=== PATIENT | male | born 1930 | race Caucasian/White ===

== ENCOUNTER → 2017-02-06 | Outpatient (CLI) | payer MEDICARE, OTHER ==
[2017-02-06 18:43] LABS: ALBUMIN/GLOBULIN RATIO 1.5 (1.0-2.2); BILIRUBIN,TOTAL 0.5 mg/dL (0.2-1.0); BUN - BLOOD UREA NITROGEN 15 mg/dL (6-20); CALCIUM 8.9 mg/dL (8.5-10.3); CARBON DIOXIDE - CO2 27 mmol/L (21-32); CHLORIDE 100 mmol/L (101-111); CHOL/HDL RATIO 2.5 (<5.0); CHOLESTEROL 127 mg/dL; CREATININE 0.7 mg/dL (0.6-1.2); GFR - MDRD 107 (>89); GLUCOSE 144 mg/dL (70-100); HDL CHOLESTEROL 51 mg/dL; LDL/HDL RATIO 1.3 (<3.6); POTASSIUM 4.8 mmol/L (3.5-5.0); SODIUM 134 mmol/L (135-145); TOTAL PROTEIN 6.9 g/dL (6.7-8.2); TRIGLYCERIDES 57 mg/dL; VLDL CHOLESTEROL 11 mg/dL
[2017-02-06 19:09] LABS: BASOPHILS # (AUTO) 0.1 10^3/uL (0.0-0.1); BASOPHILS % (AUTO) 1.1 %; EOSINOPHILS # (AUTO) 0.3 10^3/uL (0.0-0.7); EOSINOPHILS % (AUTO) 3.2 %; HCT - HEMATOCRIT 39.3 % (42.0-52.0); HGB - HEMOGLOBIN 12.8 g/dL (14.0-18.0); LYMPHOCYTES # (AUTO) 0.9 10^3/uL (1.5-3.5); LYMPHOCYTES % (AUTO) 11.3 %; MEAN CORPUSCULAR HEMOGLOBIN 29.4 pg (27.0-31.0); MEAN CORPUSCULAR HGB CONC 32.7 g/dL (32.0-36.0); MONOCYTES % (AUTO) 12.4 %; NEUTROPHILS # (AUTO) 5.9 10^3/uL (1.5-6.6); RED BLOOD COUNT 4.36 10^6/uL (4.70-6.10); RED CELL DISTRIBUTION WIDTH 14.3 % (12.0-15.0); UNCORRECTED WHITE BLOOD COUNT 8.2 x10^3/uL; WHITE BLOOD COUNT 8.2 x10^3/uL (4.8-10.8)
[2017-02-06 19:59] LABS: HEMOGLOBIN A1C 0.64 g/dL
== END ==
LOC: LAB.S 08:00
PROVIDERS: ATTEND Nurse Practitioner Family
DX: E11.9 Type 2 diabetes mellitus without complications (principal); I50.9 Heart failure, unspecified; E78.5 Hyperlipidemia, unspecified
CPT/HCPCS: 36415; 80053; 80061; 83036; 85025

== ENCOUNTER 2017-02-20 08:00 | Outpatient (CLI) | payer MEDICARE, OTHER | END 2017-02-20 08:01 | disposition home or self-care (01) | LOC: LAB.R 08:00 | PROVIDERS: ATTEND Nurse Practitioner Family | DX: D64.9 Anemia, unspecified (principal) | CPT/HCPCS: 82270; 83630 ==

== ENCOUNTER 2017-06-20 11:14 | Outpatient (CLI) | payer MEDICARE, OTHER | END 2017-06-20 11:15 | disposition critical access hospital (66) | LOC: EMS 11:14 | PROVIDERS: ATTEND Surgery | DX: M25.551 Pain in right hip (principal); W18.39XA Other fall on same level, initial encounter; Y93.89 Activity, other specified; Y92.009 Unspecified place in unspecified non-institutional (private) residence as the place of occurrence of the external cause | CPT/HCPCS: A0425; A0429 ==

== ENCOUNTER 2017-06-20 11:49 | Inpatient (IN) | payer MEDICARE, OTHER ==
[2017-06-20] MEDS ORDERED: SODIUM CHLORIDE 0.9% 1,000 ML IV ONE ×5 (12:25→19:52)
[2017-06-20] MEDS ORDERED: MORPHINE 10 MG/ML VIAL IVP STA ×2 (12:25→13:36)
[2017-06-20 12:45] LABS: BASOPHILS # (AUTO) 0.1 10^3/uL (0.0-0.1); BASOPHILS % (AUTO) 0.8 %; EOSINOPHILS # (AUTO) 0.2 10^3/uL (0.0-0.7); EOSINOPHILS % (AUTO) 1.8 %; HGB - HEMOGLOBIN 12.3 g/dL (14.0-18.0); LYMPHOCYTES # (AUTO) 0.9 10^3/uL (1.5-3.5); LYMPHOCYTES % (AUTO) 8.2 %; MEAN CORPUSCULAR HEMOGLOBIN 30.1 pg (27.0-31.0); MEAN CORPUSCULAR HGB CONC 34.6 g/dL (32.0-36.0); MEAN PLATELET VOLUME 7.2 fL (7.4-11.4); MONOCYTES # (AUTO) 1.3 10^3/uL (0.0-1.0); MONOCYTES % (AUTO) 11.8 %; NEUTROPHILS # (AUTO) 8.3 10^3/uL (1.5-6.6); NEUTROPHILS % (AUTO) 77.4 %; PLT - PLATELET COUNT 240 10^3/uL (130-450); RED BLOOD COUNT 4.09 10^6/uL (4.70-6.10); WHITE BLOOD COUNT 10.7 x10^3/uL (4.8-10.8)
--- NOTE | 2017-06-20 12:47 | ED Physician Documentation ---
History of Present Illness - Stated complaint Stated Complaint: GLF - Chief complaint Chief Complaint: Ext Problem - History obtained from History obtained from: Patient, Family - History of Present Illness Timing: Today, How many hours ago (1) Pain level max: 8 Pain level now: 4 Improved by: rest Worsened by: movement - Additonal information Additional information: Patient is an 87-year-old male who tripped and fell today at home, landing on his right side. Complaining of right hip pain. He denies being on any blood thinners. Better with rest, worse with movement. Did not strike his head. No loss of consciousness. No other complaints of pain at this time. Review of Systems Ten Systems: 10 systems reviewed and negative Constitutional: denies: Fever, Chills Ears: denies: Ear pain Nose: denies: Rhinorrhea / runny nose, Congestion Throat: denies: Sore throat Cardiac: denies: Chest pain / pressure Respiratory: denies: Cough GI: denies: Abdominal Pain, Nausea, Vomiting, Diarrhea : denies: Dysuria, Frequency, Hesitancy Skin: denies: Rash Musculoskeletal: denies: Neck pain, Back pain Neurologic: denies: Focal weakness, Numbness, Headache PD PAST MEDICAL HISTORY - Past Medical History Past Medical History: Yes Cardiovascular: Hypertension, High cholesterol - Present Medications Home Medications: Ambulatory Orders Medication Instructions Recorded Confirmed Aspirin 81 mg PO DAILY 06/20/17 Atorvastatin Calcium 40 mg PO QPM 06/20/17 Carvedilol [Coreg] 12.5 mg PO BID 06/20/17 Lisinopril 5 mg PO DAILY 06/20/17 Spironolactone [Aldactone] 25 mg PO DAILY 06/20/17 - Living Situation Living Arrangement: reports: At home - Social History Does the pt have substance abuse?: No - Family History Family history: reports: Non contributory PD ED PE NORMAL - Vitals Vital signs reviewed: Yes - General General: Alert and oriented X 3, No acute distress, Well developed/nourished - HEENT HEENT: Atraumatic, PERRL, EOMI, Ears normal, Moist mucous membranes - Neck Neck: Supple, no meningeal sign, No bony TTP - Cardiac Cardiac: RRR, Strong equal pulses - Respiratory Respiratory: No respiratory distress, Clear bilaterally - Abdomen Abdomen: Soft, Non tender, Non distended - Derm Derm: Warm and dry - Extremities Extremities: Other (TTP R hip, limited ROM 2/2 pain. NVI. swelling R hip.) - Neuro Neuro: Alert and oriented X 3 - Psych Psych: Normal mood, Normal affect Results - Vitals Vitals: Vital Signs - 24 hr 06/20/17 06/20/17 06/20/17 11:53 12:15 12:30 Temperature 36.0 C L Heart Rate 59 L 86 82 Respiratory 20 16 16 Rate Blood Pressure 163/80 H 158/82 H 162/85 H O2 Saturation 99 98 98 06/20/17 06/20/17 14:01 15:01 Temperature Heart Rate 66 78 Respiratory 14 18 Rate Blood Pressure 153/78 H 153/78 H O2 Saturation 96 98 Oxygen O2 Source Room air - EKG (time done) 1209 Rate: Rate (enter#) (59) Rhythm: NSR [employer]: Normal Intervals: Normal [place] QRS: Normal Ischemia: Normal ST segments Computer interpretation: Agree with computer - Labs Labs: Laboratory Tests 06/20/17 06/20/17 12:35 12:35 WBC 10.7 RBC 4.09 L Hgb 12.3 L Hct 35.6 L MCV 87.0 MCH 30.1 MCHC 34.6 RDW 14.0 Plt Count 240 MPV 7.2 L Neut # 8.3 H Lymph # 0.9 L [place] # 1.3 H Eos # 0.2 Baso # 0.1 Absolute Nucleated RBC 0.00 Nucleated RBC % 0.0 Sodium 132 L Potassium 4.4 Chloride 101 Carbon Dioxide 25 Anion Gap 6.0 BUN 16 Creatinine 0.8 Estimated GFR (MDRD) 91 Glucose 155 H Calcium 8.7 Total Bilirubin 0.7 AST 24 ALT 15 Alkaline Phosphatase 46 Total Protein 6.4 L Albumin 3.8 Globulin 2.6 Albumin/Globulin Ratio 1.5 Lipase 16 L - Rads (name of study) cxr Radiology: Prelim report reviewed, EMP read contemporaneously, See rad report ( no acute disease) R hip xray Radiology: Prelim report reviewed, EMP read contemporaneously, See rad report ( Displaced and angulated spiral fracture of proximal right femoral diaphysis. Displaced fracture right lesser trochanter. ) PD MEDICAL DECISION MAKING - ED course Complexity details: reviewed old records, reviewed results, re-evaluated patient , considered differential, d/w patient, d/w customer sales consultant ED course: Patient is an 87-year-old male who presents to the emergency department after a fall. Found to have a right spiral femur fracture. As well as a greater trochanter fracture. Discussed the case with orthopedics and will take to the operating room. Last ate at 6 AM today. Also discussed with Dr. Cabrera, hospitalist who will do a preop evaluation. Pain well controlled. Dr. Bennett came and evaluated the patient, orthopedics and will take him to the OR. This document was made in part using voice recognition software. While efforts are made to proofread this document, sound alike and grammatical errors may occur. Departure - Departure Disposition: ED Transfer to [facility] Clinical Impression: Hip fracture Qualifiers: Encounter type: initial encounter Fracture type: closed Laterality: right Qualified Code(s): S72.001A - Fracture of unspecified part of neck of right femur, initial encounter for closed fracture Condition: Good Discharge Date/Time: 06/20/17 16:10
[2017-06-20 12:54] LABS: ALBUMIN 3.8 g/dL (3.2-5.5); ALBUMIN/GLOBULIN RATIO 1.5 (1.0-2.2); BILIRUBIN,TOTAL 0.7 mg/dL (0.2-1.0); CALCIUM 8.7 mg/dL (8.5-10.3); CREATININE 0.8 mg/dL (0.6-1.2); TOTAL PROTEIN 6.4 g/dL (6.7-8.2)
[2017-06-20] MEDS ORDERED: HYDROmorphone 1 MG/ML SYRINGE IVP PRN (13:58)
[2017-06-20] MEDS ORDERED: SODIUM CHLORIDE FLUSH 0.9% 10 ML SYRINGE IVP PRN (13:58)
[2017-06-20] MEDS ORDERED: ONDANSETRON 4 MG/2 ML VIAL IVP PRN ×2 (13:58→19:30)
[2017-06-20] MEDS ORDERED: ONDANSETRON ODT 4 MG TABLET TL PRN (13:58)
[2017-06-20] MEDS ORDERED: METOPROLOL 5 MG/5 ML VIAL IVP PRN (14:02)
--- NOTE | 2017-06-20 14:26 | XRAY Report ---
EXAM: CHEST RADIOGRAPHY EXAM DATE: 06/20/2017 01:40 PM. CLINICAL HISTORY: Hip fracture. Presurgical clearance. COMPARISON: 10/20/2006. TECHNIQUE: 1 view. FINDINGS: Lungs/Pleura: No focal opacities or vascular congestion. No pleural effusion or pneumothorax. Mediastinum: Normal heart size. Stable mildly tortuous aorta. Other: No acute fracture evident. IMPRESSION: 1. No acute cardiopulmonary findings. 2. Senescent aorta. [facility] Referring Provider Line: [phone] SITE ID: [id number]
--- NOTE | 2017-06-20 14:26 | XRAY Preliminary Report ---
Exam: XR CHEST 1 VIEW X-RAY IMPRESSION: 1. No acute cardiopulmonary findings. 2. Senescent aorta. [facility] SITE ID: [id number]
--- NOTE | 2017-06-20 14:30 | XRAY Report ---
EXAM: RIGHT HIP RADIOGRAPHY EXAM DATE: 06/20/2017 01:09 PM. CLINICAL HISTORY: Right hip pain after fall. COMPARISON: None. TECHNIQUE: 5 views including AP pelvis. FINDINGS: Bones: Spiral fracture mainly of the proximal femoral diaphysis with one shaft width posterior displa cement and lateral posterior angulation of the fracture apex. Fracture of right lesser trochanter whi ch is displaced proximally. Intact bony pelvis. Joints: No subluxation. Mild age-related degenerative changes of bilateral hips. Other: Degenerative changes lower lumbar spine. IMPRESSION: 1. Displaced and angulated spiral fracture of proximal right femoral diaphysis. 2. Displaced fracture right lesser trochanter. [facility] Referring Provider Line: [phone] SITE ID: [id number]
--- NOTE | 2017-06-20 14:30 | XRAY Preliminary Report ---
Exam: XR HIP W/PELVIS 2-3V RT IMPRESSION: 1. Displaced and angulated spiral fracture of proximal right femoral diaphysis. 2. Displaced fracture right lesser trochanter. [facility] SITE ID: [id number]
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
--- NOTE | 2017-06-20 15:38 | PROVIDER PROGRESS NOTE ---
Subjective - Prog Note Date Prog Note Date: 06/20/17 Prog Note Time: 15:36 - Subjective Subjective: GLF at home today, sustaining an injury to right leg/thigh. No LOC or other injury. Unable to stand on right side. Taken to ED for evaluation. No prior fracture Objective - Vital Signs/Intake & Output Vital Signs: Vital Signs x48h Temp Pulse Resp BP Pulse Ox 06/20/17 14:01 66 14 153/78 H 96 06/20/17 11:53 36.0 C L 59 L 20 163/80 H 99 - Lab Results Fish Bones: 06/20/17 12:35 06/20/17 12:35 Other Labs: Lab Results x24hrs 06/20/17 06/20/17 Range/Units 12:35 12:35 WBC 10.7 (4.8-10.8) x10^3/uL RBC 4.09 L (4.70-6.10) 10^6/uL Hgb 12.3 L (14.0-18.0) g/dL Hct 35.6 L (42.0-52.0) % MCV 87.0 (80.0-94.0) fL MCH 30.1 (27.0-31.0) pg MCHC 34.6 (32.0-36.0) g/dL RDW 14.0 (12.0-15.0) % Plt Count 240 (130-450) 10^3/uL MPV 7.2 L (7.4-11.4) fL Neut # 8.3 H (1.5-6.6) 10^3/uL Lymph # 0.9 L (1.5-3.5) 10^3/uL [place] # 1.3 H (0.0-1.0) 10^3/uL Eos # 0.2 (0.0-0.7) 10^3/uL Baso # 0.1 (0.0-0.1) 10^3/uL Absolute Nucleated RBC 0.00 x10^3/uL Nucleated RBC % 0.0 /100WBC Sodium 132 L (135-145) mmol/L Potassium 4.4 (3.5-5.0) mmol/L Chloride 101 (101-111) mmol/L Carbon Dioxide 25 (21-32) mmol/L Anion Gap 6.0 (6-13) BUN 16 (6-20) mg/dL Creatinine 0.8 (0.6-1.2) mg/dL Estimated GFR (MDRD) 91 (>89) Glucose 155 H (70-100) mg/dL Calcium 8.7 (8.5-10.3) mg/dL Total Bilirubin 0.7 (0.2-1.0) mg/dL AST 24 (10-42) IU/L ALT 15 (10-60) IU/L Alkaline Phosphatase 46 (42-121) IU/L Total Protein 6.4 L (6.7-8.2) g/dL Albumin 3.8 (3.2-5.5) g/dL Globulin 2.6 (2.1-4.2) g/dL Albumin/Globulin Ratio 1.5 (1.0-2.2) Lipase 16 L (22-51) U/L - Diagnostic Imaging Diagnostic Imaging Comments: Angulated and flexed subtrochanteric hip/proximal femur fracture - Other Results/Comments Other Results/Comments: EXAM<: Right leg - angulated deformity proximal thigh, leg int rotated. Moves toes well. Sensation -intact. Good capfilling Assessment/Plan - Problem List (1) Hip fracture Impression: Patient has a subtrochanteric hip/proximal femur fracture - closed and angulated. N/V intact PLAN: After medical clearance, plan open reduction and long interTan nailing of right proximal femur fracture later today. Last ate at 0600. Risk/benefits explained and patient wishes to proceed with surgery. Leg marked. Consent signed. Qualifiers: Encounter type: initial encounter Fracture type: closed Laterality: right Qualified Code(s): S72.001A - Fracture of unspecified part of neck of right femur, initial encounter for closed fracture
[2017-06-20] MEDS ORDERED: BUPIVACAINE 0.5% PF 10 ML VIAL IM ONE (16:30)
[2017-06-20] MEDS ORDERED: fentaNYL 100 MCG/2 ML VIAL IVP ONE (16:30)
[2017-06-20] MEDS ORDERED: PHENYLEPHRINE 10 MG/ML VIAL IV ONE (16:30)
[2017-06-20] MEDS ORDERED: ePHEDrine 50 MG/ML AMP IVP ONE (16:30)
[2017-06-20] MEDS ORDERED: MIDAZOLAM 2 MG/2 ML VIAL IVP ONE (16:30)
--- NOTE | 2017-06-20 16:35 | HISTORY & PHYSICAL EXAMINATION ---
DATE OF SERVICE: 06/20/2017 Physician: Madhu Bennett MD CHIEF COMPLAINT: "I fell and hurt my right leg." DATE OF ADMISSION: 06/20/2017. HISTORY OF PRESENT ILLNESS: The patient is an 87-year-old male who lives alone here on [facility] who apparently fell onto his right side as he was attempting to put on his coveralls this afternoon. He noted immediate pain and deformity in his right leg. He was unable to stand or weight bear. He was taken to the emergency room here at [facility] where x-rays showed an angulated and displaced, closed subtrochanteric proximal right femur fracture. The patient had no distal weakness or numbness in the right lower extremity. No loss of consciousness noted. No other injuries are noted. No prior fractures noted. PAST MEDICAL HISTORY: CHRONIC ILLNESSES: 1. History of hypertension. 2. History of angina in the past. 3. History of congestive heart failure in the past. 4. History of type 2 diabetes - controlled. 5. History of chronic obstructive pulmonary disease. CURRENT MEDICATIONS: 1. Aldactone 25 mg p.o. daily. 2. Lisinopril 5 mg p.o. daily. 3. Lipitor 40 mg p.o. evening. 4. Aspirin 81 mg p.o. daily. 5. Coreg 12.5 mg p.o. b.i.d. SOCIAL HISTORY: The patient [place] PHYSICAL EXAMINATION: GENERAL: This is an elderly male, lying in a stretcher in moderate distress. VITAL SIGNS: BP 153/78, pulse 66, respirations 14, temperature 36. HEENT: Normocephalic, PERRLA. EOMs full. Vision and hearing grossly intact and symmetrical. Nose and throat clear. NECK: Supple, without nodes. CHEST: Clear to auscultation. CARDIOVASCULAR: Regular rate and rhythm, S1, S2, without murmurs, rubs or gallops. ABDOMEN: Soft, nontender, active bowel sounds. EXTREMITIES: Right lower extremity - the patient has obvious angulatory deformity of his proximal thigh. It is somewhat swollen. No wounds appreciated. Leg is slightly shortened and internally rotated. The patient moves his toes well. Sensation intact throughout. Good capillary filling though to the toes as well. NEUROLOGIC: The patient grossly intact and symmetrical throughout on sensory and motor exam. Mental Status - patient is alert and oriented x3. Answers questions appropriately. X-RAYS: Shows an oblique subtrochanteric hip fracture of the proximal femur. LABORATORY DATA: Hematocrit is 35.6, WBC 10,700, sodium 132, potassium 4.1, chloride 101, carbon dioxide 25, creatinine 0.8. ASSESSMENT: 1. Closed, angulated right proximal femur fracture. 2. History of hypertension. 3. History of well-controlled type 2 diabetes. 4. History of chronic obstructive pulmonary disease. 5. History of congestive heart failure. PLAN: I will have the patient evaluated by the medical service to determine whether we should proceed with surgery later today or not. The patient last ate at about 6 in the morning. Had some black coffee later in the morning. Once he has been cleared medically we will proceed to take the patient to the OR for an open reduction as needed of his angulated proximal femur fracture. We will stabilize the reduced fracture with a long interTan (06:29) nailing. The risks and benefits of surgery were explained to the patient including, but not limited to , anesthesia risks, infection, blood loss, nerve damage, malunion, nonunion, hardware failure, blood clots, etc. The patient appeared to understand these risks and benefits, but wants to proceed with surgery. All his questions were answered. Discussion on the phone with the patient's son was also done. All his questions were also answered. The patient's legs were marked. Consent signed. TD: 06/20/2017 17:34 MARLENE
[2017-06-20] MEDS ORDERED: BUPIVACAINE 0.25%-EPI 1:200000 PF 30 ML VIAL SUBQ ONE ×2 (17:13)
[2017-06-20] MEDS ORDERED: SODIUM CHLORIDE 0.9% 1,000 ML IV SCH ×2 (18:00→20:00)
--- NOTE | 2017-06-20 19:27 | OPERATIVE REPORT ---
Operative Report - General Admit Date: 06/20/17 Procedure Date: 06/20/17 Planned Procedure: Open reduction; long interTan nailing of right subtrochanteric femur fx Pre-Op Diagnosis: Angulated, close right subtrochanteric/proximal femur fracture Procedure Performed: Open reduction and long interTan nailing of right femur fracture Post Op Diagnosis: Same - Procedure Note Primary Surgeon: Evangelina Bennett Secondary Surgeon: Jethro Anesthesia Provider: Eboni Stoddard Anesthesia Technique: Spinal IV Fluids (mL): 2,000 Estimated Blood Loss (mL): 400 Complications: None
[2017-06-20] MEDS ORDERED: ACETAMINOPHEN 1,000 MG/100 ML 100 ML IV PRN (19:30)
[2017-06-20] MEDS ORDERED: ACETAMINOPHEN 325 MG TABLET PO PRN (19:30)
[2017-06-20] MEDS ORDERED: PROCHLORPERAZINE 10 MG/2 ML VIAL IVP PRN (19:30)
[2017-06-20 19:54] LABS: HGB - HEMOGLOBIN 8.3 g/dL (14.0-18.0)
[2017-06-20 20:07] LABS: ALBUMIN 2.5 g/dL (3.2-5.5); ALBUMIN/GLOBULIN RATIO 1.4 (1.0-2.2); BILIRUBIN,TOTAL 0.6 mg/dL (0.2-1.0); CALCIUM 6.9 mg/dL (8.5-10.3); CREATININE 0.7 mg/dL (0.6-1.2); TOTAL PROTEIN 4.3 g/dL (6.7-8.2)
--- NOTE | 2017-06-20 20:07 | XRAY Report ---
EXAM: FLUOROSCOPIC GUIDANCE EXAM DATE: 06/20/2017 06:59 PM. CLINICAL HISTORY: ORIF RIGHT FEMUR. COMPARISON: None. FINDINGS: No images recorded. IMPRESSION: Fluoroscopic guidance provided for right femur IM nail. Total fluoroscopy time: 1:10 min. Number of images: 0. CONSTANTINO Referring Provider Line: [phone] SITE ID: [id number]
[2017-06-20] MEDS ORDERED: SODIUM CHLORIDE 0.9% 500 ML IV SCH (20:24)
--- NOTE | 2017-06-20 20:45 | OPERATIVE REPORT ---
DATE OF SERVICE: 06/20/2017 Physician: Madhu Bennett MD PREOPERATIVE DIAGNOSIS: Closed, angulated and displaced right subtrochanteric/proximal femur fractur e. POSTOPERATIVE DIAGNOSIS: Closed, angulated and displaced right subtrochanteric/proximal femur fractu re. PROCEDURE PERFORMED: Open reduction and long Intertan nailing of right subtrochanteric/proximal femu r fracture. SURGEON: Madhu Bennett BALANCE WHEEL SCREW HOLE DRILLER: None. ANESTHESIA: Spinal. DESCRIPTION OF PROCEDURE: The patient was taken to the operating room on the evening of 06/20/2017, where he was placed under spinal anesthetic without any complications. He was then positioned supine and plac ed onto the fracture table. The left unfractured leg was then flexed and widely abducted and held with a wel l leg cota. The fractured right lower extremity was then placed in the longitudinal traction with the le g internally rotated about 15 degrees. Fluoroscopic views and AP and lateral projection, showed good visualization of the femur and the hip. However, because of the subtrochanteric position of his frac ture, his proximal fragment was flexed. Adjustments in the traction and applying anterior pressure over the fr acture apex did not improve the alignment of the fracture or the displacement of the fracture. We then prep ped and draped the lateral aspect in the hip and thigh in the usual fashion for our procedure. Making a curvi linear skin incision from just proximal to the tip of the greater trochanter, swinging anteriorly and then b ack to the mid shaft, we dissected down first to the tip of the greater trochanter for our eventual start po int, and then anterior and distal in our incision. We dissected until we could palpate the fracture digitally . We again noted as we did in the preoperative x-rays that the proximal fragment was flexed from the pole of the iliopsoas. After freeing the soft tissues between the fracture fragments, we then used bone hooks an d bone reduction clamps to reduce the fracture. We had manipulated the fracture using a combination of bone hooks, Dee elevators and bone reduction clamps. We were able to eventually obtain an open reduction, showi ng the fracture to be nearly out to length and to be in good alignment now on both AP and lateral projection . This was confirmed using fluoroscopic views in multiple planes. We held this fracture reduction with a Ve rbrugge bone reduction clamp. Having reduced our fracture, we then proceeded to begin our nailing. Placing the threaded at the tip of the greater trochanter, we advanced the guidepin through the great er trochanter and into the proximal femur to the level of the lesser trochanter under power. Fluoroscop ic views and AP and lateral projection, showed good position and depth of our guidepin up in both planes. We then used the cannulated 16 mm channel reamer to ream the proximal femur over our guidepin. This was done to t he level of the lesser trochanter. We removed the reamer and the guidepin. This was then followed by a spoon reduction forcep inserted into the proximal femoral fragment. This was then followed by a ball-tip g uide down our spoon reduction instrument. We were able to feed the ball-tipped guide down across the fracture and into the distal fragment. The position of our ball-tipped guide was confirmed in AP and lateral projectio n, showing that it was in the intraosseous position both proximally and distally. The ball-tipped guide was advanced to the level of the superior pole of the patella in the AP projection. Direct measuring dmitriy de was then used and we determined a 42 cm length nail would be used. We then proceeded to sequentially ream the proximal femur fracture and distal shaft of the femur star ting first with a 9 mm flexible reamer and advancing in half mm increments until we had reamed the femoral shaft up to 11.5 mm in diameter. We determined and selected then a right Intertan nail which was 10 mm in adolph meter x42 cm in length, with 125 degree angle proximally. This was placed on our alignment insertion guide. W e then advanced the nail over our ball-tip reamer guidepin until the nail passed the level of the fracture. We then removed the ball-tip pin guide out of the nail. We then advanced the nail until the proximal and obl ique channel was in line with the femoral neck. Satisfied with this, we then placed the oval pin guide in to the distal end of our alignment jig. Pin guide was then inserted into this oval sleeve followed by the threaded-tip guidewire. As this was advanced to within a few millimeters of the subchondral bone of the femoral head, AP and lateral projection x-ray showed near central location of our guidepin in the fem oral neck and femoral head in both AP and lateral projections. Satisfied with the position of the guidep in, we measured we would require between 100-105 mm subtrochanteric hip lag screw. The 100 x 11 mm subtroch anteric hip lag screw was selected. We then reamed over our inserted guidepin with the cannulated reamer. L astly, we inserted our cannulated hip lag screw over our guidepin. After insertion, the tip of the hip lag scr ew was within 5 mm of the subchondral bone and the opposite in the right hip lag screw was just at the later al femoral cortex. We did not want to advance this hip lag screw any further. We then locked the proxi mal end of the nail using the hinged screwdriver. After we tightened the set screw, we then backed off 90 de grees. Last, we then removed the insertion/alignment jig off the proximal end of the nail using a ball-tippe d screwdriver. Fluoroscopic views in AP and lateral projection confirmed satisfactory placement of our hardware proximally, as well as good apposition of our fracture in satisfactory alignment of the fracture in b [facility] AP and lateral projections. Next, we directed our attention distally. We abducted the leg at this point and then placed the C-ar m fluoroscopic machine in the lateral position. With adjustments of the position of our fluoroscopic m achine we were able to obtain a nearly perfect [place] in the more proximal of the 2 holes in the distal end of our nail. Using the #15 blade, we found the position fluoroscopically to make our incision. Soft tissue was c leared with a hemostat. We then followed up with a 4.5 mm drill bit. Fluoroscopically, we placed the tip o f the drill in the center of the proximal hole and once locating this fluoroscopically, we then elevated ou r drill so that it was perpendicular to hard nail. We then advanced the drill easily through both medial and lateral femoral cortex and through the nail. This was confirmed fluoroscopically. We measured the appropria te length of our screw. We then replaced the drill bit with the selected 5 mm distal locking screw at the appr opriate length. In likewise fashion, we proceeded to place the second distal locking screw through the oval hole at the distal end of our nail. Fluoroscopic views in AP and lateral projections of the distal end of th e nail showed the 2 distal locking screws to be bicortical and through the appropriate holes in the distal e nd of our nail. We then irrigated the wounds out thoroughly with saline. We closed the wound in layers using buried simple [id number]-[id number] stitches to close the fascia janeth incision with 0 Polysorb suture. The subcutaneous tissue was then closed with buried simple stitches of 2-0 Polysorb sutures. Finally, skin nikos used to approximate the skin edges on all the wounds. We injected a total of 40 mL of 0.25% Marcaine without epinephrine to provide local skin and anesthesia to supplement the spinal anesthesia the patient had. The patient transferred to recovery room in satisfactory condition. ESTIMATED BLOOD LOSS: 400 mL REPLACEMENT: 2000 mL crystalloid. INTRAOPERATIVE COMPLICATIONS: None. PLAN: The patient will be advanced in physical therapy as tolerated. May be walker, ambulating, weightbearing as tolerated in his right lower extremity. TD: 06/20/2017 21:44
[2017-06-20] MEDS ORDERED: SODIUM CHLORIDE FLUSH 0.9% 10 ML SYRINGE IVP SCH (22:00)
[2017-06-20] MEDS: SODIUM CHLORIDE 0.9% 1,000 ML IV SCH (22:20)
[2017-06-20] MEDS: ceFAZolin 2 GM/50 ML 2 GM/50 ML BAG IV SCH (22:20)
[2017-06-20] MEDS: SODIUM CHLORIDE FLUSH 0.9% 10 ML SYRINGE IVP SCH ×2 (22:21→23:48)
[2017-06-20] MEDS: oxyCOD/ACETAMIN 5 MG/325 MG TABLET PO PRN (22:45)
[2017-06-20] MEDS ORDERED: SIMETHICONE CHEW 80 MG TABLET PO SCH (23:00)
[2017-06-20] MEDS: MORPHINE 2 MG/ML SYRINGE IVP PRN (23:48)
[2017-06-21] MEDS: oxyCOD/ACETAMIN 5 MG/325 MG TABLET PO PRN ×4 (03:52→22:09)
[2017-06-21] MEDS: ceFAZolin 2 GM/50 ML 2 GM/50 ML BAG IV SCH (04:36)
[2017-06-21] MEDS: MORPHINE 2 MG/ML SYRINGE IVP PRN ×3 (04:57→20:14)
[2017-06-21] MEDS: SODIUM CHLORIDE FLUSH 0.9% 10 ML SYRINGE IVP SCH ×3 (06:22→20:05)
[2017-06-21] MEDS: PANTOPRAZOLE 40 MG VIAL IVP SCH (06:22)
[2017-06-21] MEDS: POLYETHYLENE GLYCOL 3350 17 GM PACKET PO SCH (08:20)
[2017-06-21] MEDS: DOCUSATE SODIUM 100 MG CAPSULE PO PRN ×2 (08:21→22:16)
[2017-06-21] MEDS: ENOXAPARIN 40 MG/0.4 ML SYRINGE SUBQ SCH (08:21)
[2017-06-21] MEDS: SENNA 8.6 MG TABLET PO PRN ×2 (08:21→22:15)
[2017-06-21 09:23] LABS: HGB - HEMOGLOBIN 9.8 g/dL (14.0-18.0)
--- NOTE | 2017-06-21 10:30 | PROVIDER PROGRESS NOTE ---
Subjective - Prog Note Date Prog Note Date: 06/21/17 Prog Note Time: 10:27 - Subjective Pt reports feeling: Improved Subjective: he is still stating he wants to go home. doesn't want rehab at SNF. no chest pain right now but had some before OR yesterday. denies sob, abd pain. leg pain is controlled. needed 1 unit transfused yesterday since BP low. Current Medications - Current Medications Current Medications: Active Medications Acetaminophen (Tylenol) 650 - 975 mg PO Q4HR PRN PRN Reason: PAIN Docusate Sodium (Colace 100mg Capsule) 100 mg PO BID PRN PRN Reason: Constipation Last Admin: 06/21/17 08:21 Dose: 100 mg Enoxaparin Sodium (Lovenox) 40 mg SUBQ DAILY [facility] Last Admin: 06/21/17 08:21 Dose: 40 mg Hydromorphone HCl (Dilaudid Inj Syringe) 0.5 mg IVP Q2H PRN PRN Reason: Pain 8 to 10 Acetaminophen (Ofirmev) 100 mls @ 400 mls/hr IV Q6HR PRN PRN Reason: PAIN Sodium Chloride (Normal Saline 0.9%) 1,000 mls @ 125 mls/hr IV .Q8H [facility] Last Admin: 06/20/17 22:20 Dose: 125 mls/hr Metoprolol Tartrate (Lopressor Inj) 5 mg IVP Q6H PRN PRN Reason: Tachycardia Morphine Sulfate (Morphine) 2 mg IVP Q2HR PRN PRN Reason: PAIN Last Admin: 06/21/17 08:21 Dose: 2 mg Ondansetron HCl (Zofran Odt) 4 mg TL Q6HR PRN PRN Reason: Nausea / Vomiting Ondansetron HCl (Zofran Inj) 4 mg IVP Q6HR PRN PRN Reason: Nausea / Vomiting Oxycodone/Acetaminophen (Percocet 5 Mg/325 Mg) 1 tab PO Q4HR PRN PRN Reason: PAIN Last Admin: 06/21/17 10:17 Dose: 1 tab Pantoprazole Sodium (Protonix) 40 mg IVP QDAC [facility] Last Admin: 06/21/17 06:22 Dose: 40 mg Polyethylene Glycol (Miralax) 17 gm PO DAILY [facility] Last Admin: 06/21/17 08:20 Dose: 17 gm Prochlorperazine Edisylate (Compazine Inj) 10 mg IVP Q6HR PRN PRN Reason: Nausea / Vomiting Senna (Senokot) 17.2 mg PO Q12H PRN PRN Reason: Constipation Last Admin: 06/21/17 08:21 Dose: 17.2 mg Simethicone (Mylicon) 80 mg PO 0900,1300,1800,2100 PRN PRN Reason: Gas Sodium Chloride (Normal Saline Flush 0.9%) 10 ml IVP Q8HR [facility] Last Admin: 06/21/17 06:22 Dose: 10 ml Sodium Chloride (Normal Saline Flush 0.9%) 10 ml IVP PRN PRN PRN Reason: NEEDED PER PROVIDER ORDERS Aspirin 81 mg PO DAILY 06/20/17 Atorvastatin Calcium 40 mg PO QPM 06/20/17 Carvedilol [Coreg] 12.5 mg PO BID 06/20/17 Lisinopril 5 mg PO DAILY 06/20/17 Spironolactone [Aldactone] 25 mg PO DAILY 06/20/17 Objective - Vital Signs/Intake & Output Reviewed Vital Signs: Yes Vital Signs: Vital Signs x48h Temp Pulse Pulse Resp BP BP Pulse Ox 06/21/17 08:05 36.5 C 93 20 115/56 L 98 06/21/17 04:42 36.4 C L 89 18 103/59 L 06/21/17 04:36 36.4 C L 89 18 103/59 L 89 L Intake & Output: Intake & Output 06/18/17 06/19/17 06/20/17 06/21/17 23:59 23:59 23:59 23:59 Intake Total 1550 1295 Output Total 200 325 Balance 1350 970 - Objective General Appearance: positive: No acute distress, Alert, Other Eyes Bilateral: positive: PERRL, EOMI ENT: positive: Other (hoarse, congested, deaf) Neck: positive: No JVD. negative: Lymphadenopathy (R), Lymphadenopathy (L), Stiff neck, Carotid bruit Respiratory: positive: Chest non-tender, No respiratory distress, Rhonchi. negative: Wheezes, Rales Cardiovascular: positive: Regular rate & rhythm, Systolic murmur. negative: Gallop/S3, Gallop/S4, Friction rub Abdomen: positive: Non-tender, No organomegaly, Nml bowel sounds, No distention Skin: positive: Warm, Dry Extremities: positive: Full ROM (except for that right hip), Nml appearance, No pedal edema Neurologic/Psychiatric: positive: Oriented x3, CN's nml (2-12) (except for deafness), Motor nml - Lab Results Fish Bones: 06/21/17 09:05 06/20/17 19:50 Other Labs: Lab Results x24hrs 06/21/17 06/20/17 06/20/17 Range/Units 09:05 19:50 19:50 Hgb 9.8 L (14.0-18.0) g/dL Hct 28.7 L (42.0-52.0) % Sodium 135 (135-145) mmol/L Potassium 4.5 (3.5-5.0) mmol/L Chloride 108 (101-111) mmol/L Carbon Dioxide 23 (21-32) mmol/L Anion Gap 4.0 L (6-13) BUN 12 (6-20) mg/dL Creatinine 0.7 (0.6-1.2) mg/dL Estimated GFR (MDRD) 107 (>89) Glucose 175 H (70-100) mg/dL Calcium 6.9 L (8.5-10.3) mg/dL Total Bilirubin 0.6 (0.2-1.0) mg/dL AST 23 (10-42) IU/L ALT 14 (10-60) IU/L Alkaline Phosphatase 34 L (42-121) IU/L Total Protein 4.3 L (6.7-8.2) g/dL Albumin 2.5 L (3.2-5.5) g/dL Globulin 1.8 L (2.1-4.2) g/dL Albumin/Globulin Ratio 1.4 (1.0-2.2) Blood Type Blood Type Recheck A NEGATIVE Antibody Screen Crossmatch IS Only 06/20/17 06/20/17 Range/Units 19:50 16:14 Hgb 8.3 L (14.0-18.0) g/dL Hct 25.4 L (42.0-52.0) % Sodium (135-145) mmol/L Potassium (3.5-5.0) mmol/L Chloride (101-111) mmol/L Carbon Dioxide (21-32) mmol/L Anion Gap (6-13) BUN (6-20) mg/dL Creatinine (0.6-1.2) mg/dL Estimated GFR (MDRD) (>89) Glucose (70-100) mg/dL Calcium (8.5-10.3) mg/dL Total Bilirubin (0.2-1.0) mg/dL AST (10-42) IU/L ALT (10-60) IU/L Alkaline Phosphatase (42-121) IU/L Total Protein (6.7-8.2) g/dL Albumin (3.2-5.5) g/dL Globulin (2.1-4.2) g/dL Albumin/Globulin Ratio (1.0-2.2) Blood Type A NEGATIVE Blood Type Recheck Antibody Screen NEGATIVE Crossmatch IS Only See Detail Assessment/Plan - Problem List (1) Angina of effort Impression: chronic, unchanged. Present yesterday, none this am. usually relieved by nothing and he waits it out. EKG shows no change. Troponin was negative. will use prn NTG here. No changes. (2) Chronic diastolic CHF (congestive heart failure), NYHA class 1 Conclusion/Plan: stable. nonlimiting. continue his ususal meds. (3) Type 2 diabetes mellitus, controlled Conclusion/Plan: will recheck [id number] and pending, this am he is 170's fasting. check ac am on ongoing basis. If he's stable, no checks other than the morning one. Qualifiers: Diabetes mellitus complication status: without complication Diabetes mellitus chcf insulin use: without buttermilk drier operator use Qualified Code(s): E11.9 - Type 2 diabetes mellitus without complications (4) HTN (hypertension) Conclusion/Plan: mildly elevated in ER with pain. resumed usual meds. After surgery he dropped his pressure and needed blood. continue to monitor and adjust meds as needed. Qualifiers: Hypertension type: essential hypertension Qualified Code(s): I10 - Essential (primary) hypertension (5) COPD (chronic obstructive pulmonary disease) with chronic bronchitis Conclusion/Plan: cough, phlegm present on exam and he states is his baseline. no hypoxia. CXR neg for infiltrate. added albuterol prn. (6) Femoral shaft fracture Conclusion/Plan: Orthopedic consult with Dr. Sabrina green and he is now POD #1 Plan is for SNF or home discharge on POD #3 if progresses. We need to verify with son and DIL that they can take him home. Qualifiers: Encounter type: initial encounter Fracture morphology: spiral Fracture alignment: displaced Laterality: right (7) Acute blood loss as cause of postoperative anemia Impression: hgb on admit was 12.3 and dropped to 8.3 with hypotension transfused 1 unit and now over 9 continue to monitor.
--- NOTE | 2017-06-21 10:44 | XRAY Report ---
DATE OF SERVICE: TWO VIEW INTRAOPERATIVE RIGHT FEMUR: 06/20/2017 CLINICAL INDICATION: Right hip fracture fixation. FINDINGS: Intraoperative frontal and lateral views of the right femur demonstrate dynamic compression screw and long intramedullary wilfredo fixation of the intratrochanteric femur fracture. Two distal locking screws are seen in place. ONE MINUTE TEN SECONDS OF FLUOROSCOPY TIME WAS PROVIDED TO DR. LEONARD; FIVE SPOT IMAGES OBTAINED. IMPRESSION: INTRAOPERATIVE IMAGING OF FEMORAL FRACTURE ORIF. TD: 06/21/2017 11:43
[2017-06-21 11:11] LABS: HEMOGLOBIN A1C 0.45 g/dL; HEMOGLOBIN A1C % 6.3 % (4.6-6.2)
[2017-06-21] MEDS: SODIUM CHLORIDE 0.9% 1,000 ML IV SCH ×3 (11:29→22:12)
--- NOTE | 2017-06-21 13:00 | PROVIDER PROGRESS NOTE ---
Subjective - Prog Note Date Prog Note Date: 06/21/17 Prog Note Time: 12:58 - Subjective Pt reports feeling: Improved (Usual post op pain) Objective - Vital Signs/Intake & Output Vital Signs: Vital Signs x48h Temp Pulse Pulse Pulse Resp BP BP 06/21/17 11:03 99 90 115/60 06/21/17 10:00 99 115/60 06/21/17 08:05 36.5 C 93 20 115/56 L BP Pulse Ox 06/21/17 11:03 109/60 06/21/17 10:00 06/21/17 08:05 98 Intake & Output: Intake & Output 06/18/17 06/19/17 06/20/17 06/21/17 23:59 23:59 23:59 23:59 Intake Total 1550 2295 Output Total 200 325 Balance 1350 1970 - Lab Results Fish Bones: 06/21/17 09:05 06/20/17 19:50 Other Labs: Lab Results x24hrs 06/21/17 06/21/17 06/20/17 Range/Units 09:05 09:05 19:50 Hgb 9.8 L (14.0-18.0) g/dL Hct 28.7 L (42.0-52.0) % Sodium (135-145) mmol/L Potassium (3.5-5.0) mmol/L Chloride (101-111) mmol/L Carbon Dioxide (21-32) mmol/L Anion Gap (6-13) BUN (6-20) mg/dL Creatinine (0.6-1.2) mg/dL Estimated GFR (MDRD) (>89) Glucose (70-100) mg/dL Glycated Hemoglobin 6.3 H (4.6-6.2) % Estim Average Glucose 134 H (70-100) Calcium (8.5-10.3) mg/dL Total Bilirubin (0.2-1.0) mg/dL AST (10-42) IU/L ALT (10-60) IU/L Alkaline Phosphatase (42-121) IU/L Total Protein (6.7-8.2) g/dL Albumin (3.2-5.5) g/dL Globulin (2.1-4.2) g/dL Albumin/Globulin Ratio (1.0-2.2) Blood Type Blood Type Recheck A NEGATIVE Antibody Screen Crossmatch IS Only 06/20/17 06/20/17 06/20/17 Range/Units 19:50 19:50 16:14 Hgb 8.3 L (14.0-18.0) g/dL Hct 25.4 L (42.0-52.0) % Sodium 135 (135-145) mmol/L Potassium 4.5 (3.5-5.0) mmol/L Chloride 108 (101-111) mmol/L Carbon Dioxide 23 (21-32) mmol/L Anion Gap 4.0 L (6-13) BUN 12 (6-20) mg/dL Creatinine 0.7 (0.6-1.2) mg/dL Estimated GFR (MDRD) 107 (>89) Glucose 175 H (70-100) mg/dL Glycated Hemoglobin (4.6-6.2) % Estim Average Glucose (70-100) Calcium 6.9 L (8.5-10.3) mg/dL Total Bilirubin 0.6 (0.2-1.0) mg/dL AST 23 (10-42) IU/L ALT 14 (10-60) IU/L Alkaline Phosphatase 34 L (42-121) IU/L Total Protein 4.3 L (6.7-8.2) g/dL Albumin 2.5 L (3.2-5.5) g/dL Globulin 1.8 L (2.1-4.2) g/dL Albumin/Globulin Ratio 1.4 (1.0-2.2) Blood Type A NEGATIVE Blood Type Recheck Antibody Screen NEGATIVE Crossmatch IS Only See Detail - Other Results/Comments Other Results/Comments: EXAM: Dressing intact. Moves toes well. Minimal pain with hip rotation. Sensation ok. Good cap filling Assessment/Plan - Problem List (1) Hip fracture Impression: -satis post op PLAN: Mobilize as tolerated. Qualifiers: Encounter type: initial encounter Fracture type: closed Laterality: right Qualified Code(s): S72.001A - Fracture of unspecified part of neck of right femur, initial encounter for closed fracture
[2017-06-22] MEDS: MORPHINE 2 MG/ML SYRINGE IVP PRN ×3 (01:02→10:15)
[2017-06-22] MEDS: oxyCOD/ACETAMIN 5 MG/325 MG TABLET PO PRN ×3 (04:09→21:52)
[2017-06-22] MEDS: SODIUM CHLORIDE 0.9% 1,000 ML IV SCH (04:11)
[2017-06-22] MEDS: SODIUM CHLORIDE FLUSH 0.9% 10 ML SYRINGE IVP SCH ×3 (05:56→21:51)
[2017-06-22] MEDS: PANTOPRAZOLE 40 MG VIAL IVP SCH (06:52)
[2017-06-22] MEDS: SODIUM CHLORIDE FLUSH 0.9% 10 ML SYRINGE IVP PRN ×2 (06:53→21:51)
--- NOTE | 2017-06-22 08:19 | PROVIDER PROGRESS NOTE ---
Subjective - Prog Note Date Prog Note Date: 06/22/17 Prog Note Time: 08:00 - Subjective Pt reports feeling: Improved Subjective: his main complaint is the right hip pain with standing. "boy was that a doozy" from yesterday. denies sob, abd pain had 3-4 episodes of nocturia with urinal last night. he says that's normal for him has the chest pressure where he has to belch in left upper chest and 7 up didn' t help. simethicone did. so we don't think it was angina. Current Medications - Current Medications Current Medications: Active Medications Acetaminophen (Tylenol) 650 - 975 mg PO Q4HR PRN PRN Reason: PAIN Docusate Sodium (Colace 100mg Capsule) 100 mg PO BID PRN PRN Reason: Constipation Last Admin: 06/21/17 22:16 Dose: 100 mg Enoxaparin Sodium (Lovenox) 40 mg SUBQ DAILY [facility] Last Admin: 06/21/17 08:21 Dose: 40 mg Hydromorphone HCl (Dilaudid Inj Syringe) 0.5 mg IVP Q2H PRN PRN Reason: Pain 8 to 10 Acetaminophen (Ofirmev) 100 mls @ 400 mls/hr IV Q6HR PRN PRN Reason: PAIN Sodium Chloride (Normal Saline 0.9%) 1,000 mls @ 125 mls/hr IV .Q8H [facility] Last Admin: 06/22/17 04:11 Dose: 125 mls/hr Metoprolol Tartrate (Lopressor Inj) 5 mg IVP Q6H PRN PRN Reason: Tachycardia Morphine Sulfate (Morphine) 2 mg IVP Q2HR PRN PRN Reason: PAIN Last Admin: 06/22/17 06:50 Dose: 2 mg Ondansetron HCl (Zofran Odt) 4 mg TL Q6HR PRN PRN Reason: Nausea / Vomiting Ondansetron HCl (Zofran Inj) 4 mg IVP Q6HR PRN PRN Reason: Nausea / Vomiting Oxycodone/Acetaminophen (Percocet 5 Mg/325 Mg) 1 tab PO Q4HR PRN PRN Reason: PAIN Last Admin: 06/22/17 04:09 Dose: 1 tab Pantoprazole Sodium (Protonix) 40 mg IVP QDAC [facility] Last Admin: 06/22/17 06:52 Dose: 40 mg Polyethylene Glycol (Miralax) 17 gm PO DAILY [facility] Last Admin: 06/21/17 08:20 Dose: 17 gm Prochlorperazine Edisylate (Compazine Inj) 10 mg IVP Q6HR PRN PRN Reason: Nausea / Vomiting Senna (Senokot) 17.2 mg PO Q12H PRN PRN Reason: Constipation Last Admin: 06/21/17 22:15 Dose: 17.2 mg Simethicone (Mylicon) 80 mg PO 0900,1300,1800,2100 PRN PRN Reason: Gas Sodium Chloride (Normal Saline Flush 0.9%) 10 ml IVP Q8HR [facility] Last Admin: 06/22/17 05:56 Dose: Not Given Sodium Chloride (Normal Saline Flush 0.9%) 10 ml IVP PRN PRN PRN Reason: NEEDED PER PROVIDER ORDERS Last Admin: 06/22/17 06:53 Dose: 10 ml Aspirin 81 mg PO DAILY 06/20/17 Atorvastatin Calcium 40 mg PO QPM 06/20/17 Carvedilol [Coreg] 12.5 mg PO BID 06/20/17 Lisinopril 5 mg PO DAILY 06/20/17 Spironolactone [Aldactone] 25 mg PO DAILY 06/20/17 Objective - Vital Signs/Intake & Output Reviewed Vital Signs: Yes Vital Signs: Vital Signs x48h Temp Pulse Resp BP Pulse Ox 06/22/17 07:31 36.9 C 95 22 113/56 L 94 Intake & Output: Intake & Output 06/19/17 06/20/17 06/21/17 06/22/17 23:59 23:59 23:59 23:59 Intake Total 1550 3971 1000 Output Total 200 975 700 Balance 1350 2996 300 - Objective General Appearance: positive: No acute distress, Alert, Other (elderly white male, looks stated age, a little deaf) Eyes Bilateral: positive: PERRL, EOMI Neck: positive: No JVD. negative: Stiff neck, Carotid bruit Respiratory: positive: Chest non-tender, Rhonchi (off and on. with a good deep cough, they disappear.). negative: Wheezes, Rales Cardiovascular: positive: Regular rate & rhythm, Systolic murmur. negative: Gallop/S4, Friction rub Abdomen: positive: Non-tender, No organomegaly, Nml bowel sounds, No distention Skin: positive: Warm, Dry Extremities: positive: No pedal edema Neurologic/Psychiatric: positive: Oriented x3, CN's nml (2-12) (except deaf so he speaks in a loud, hoarse voice), Motor nml - Lab Results Fish Bones: 06/22/17 08:49 06/20/17 19:50 Other Labs: Lab Results x24hrs 06/21/17 06/21/17 Range/Units 09:05 09:05 Hgb 9.8 L (14.0-18.0) g/dL Hct 28.7 L (42.0-52.0) % Glycated Hemoglobin 6.3 H (4.6-6.2) % Estim Average Glucose 134 H (70-100) Assessment/Plan - Problem List (1) Angina of effort Impression: chronic, unchanged. Present on admission and once this am? usually relieved by nothing and he waits it out. EKG shows no change. Troponin was negative. will use prn NTG here. No changes. (2) Chronic diastolic CHF (congestive heart failure), NYHA class 1 Conclusion/Plan: stable. nonlimiting. continue his ususal meds. (3) Type 2 diabetes mellitus, controlled Conclusion/Plan: A1c 6.3% and his glucose is 140 this am. check ac am on ongoing basis. If he's stable, no checks other than the morning one. He is not needing any insulin coverage so far. Qualifiers: Diabetes mellitus complication status: without complication Diabetes mellitus usp insulin use: without usp use Qualified Code(s): E11.9 - Type 2 diabetes mellitus without complications (4) HTN (hypertension) Conclusion/Plan: mildly elevated in ER with pain. resumed usual meds. After surgery he dropped his pressure and needed blood. He has remained at less than 120 systolic for 2 days and is on prn lopressor continue to monitor and adjust meds as needed. Qualifiers: Hypertension type: essential hypertension Qualified Code(s): I10 - Essential (primary) hypertension (5) COPD (chronic obstructive pulmonary disease) with chronic bronchitis Conclusion/Plan: cough, phlegm present on exam and he states is his baseline. no hypoxia. CXR neg for infiltrate. added albuterol prn. (6) Femoral shaft fracture Conclusion/Plan: Orthopedic consult with Dr. Sabrina green and he is now POD #2 Plan is for SNF or home discharge on POD #3 if progresses. Social work verified with son and DIL that they cannot take him home. Physical therapy is working with him: Pt. seen x 25 min. today for functional activity as follows: pt. vital signs taken and found to be normal (124/65, HR 100 and O2 saturtion at 99%); Pt. performs ankle pumps and active assested heel slides in supine prior to transfer; pt. c/o pain w/bending his R knee; pt. transfers supine to sit w/max. a x 2; he is able to scoot out to edge of bed and plae his feet on floor w/min. a x 2 and cues; pt. leans off of his r hip in sitting; he is cued to lean right to equalize wt. bearing of hips; pt. c/o pain w/placing R hip on mattress; PT provides gentle flex./ext. of R knee in sitting ; Pt. cued to stand and stands w/min. a x 2; pt. remains standing as nurse "Ajay" provides pt. w/IV medication for pain; pt. then requires min. a x 2 for stepping forward, cues for sequence of "walker, Right, Left; pt. amb. x 5 ft. and then cued to turn in place for aligning w/sitting in chair; he lowers to sitting w/min. a x 2; pt. positioned w/pillow at his back, b/s table placed next to him. Pt. w/call light in reach; pt's nurse reports pt. is not at risk for standing I'ly and does not need chair alarm; Pt. provided w/TV control. He has no questions or voiced complaints after PT session. Plan is for [facility]. Qualifiers: Encounter type: initial encounter Fracture morphology: spiral Fracture alignment: displaced Laterality: right (7) Acute blood loss as cause of postoperative anemia Impression: hgb on admit was 12.3 and dropped to 8.3 with hypotension transfused 1 unit and 9.8 on 06/21, 8.3 today continue to monitor.
[2017-06-22] MEDS: POLYETHYLENE GLYCOL 3350 17 GM PACKET PO SCH (08:43)
[2017-06-22] MEDS: ENOXAPARIN 40 MG/0.4 ML SYRINGE SUBQ SCH (08:43)
[2017-06-22 08:55] LABS: HGB - HEMOGLOBIN 8.3 g/dL (14.0-18.0)
[2017-06-22] MEDS: SIMETHICONE CHEW 80 MG TABLET PO PRN ×2 (09:03→17:28)
--- NOTE | 2017-06-22 11:42 | PROVIDER PROGRESS NOTE ---
Subjective - Prog Note Date Prog Note Date: 06/22/17 Prog Note Time: 11:38 - Subjective Pt reports feeling: Improved (Less pain today. Up in chair now) Objective - Vital Signs/Intake & Output Vital Signs: Vital Signs x48h Temp Pulse Resp BP Pulse Ox 06/22/17 07:31 36.9 C 95 22 113/56 L 94 Intake & Output: Intake & Output 06/19/17 06/20/17 06/21/17 06/22/17 23:59 23:59 23:59 23:59 Intake Total 1550 3971 1200 Output Total 200 975 825 Balance 1350 2996 375 - Lab Results Fish Bones: 06/22/17 08:49 06/20/17 19:50 Other Labs: Lab Results x24hrs 06/22/17 06/22/17 Range/Units 08:49 07:29 Hgb 8.3 L (14.0-18.0) g/dL Hct 24.6 L (42.0-52.0) % POC Whole Bld Glucose 140 H (70 - 100) mg/dL - Other Results/Comments Other Results/Comments: EXAM: Dressing intact. Up in chair. Moves toes well. Sensation intact. Good cap filling Assessment/Plan - Problem List (1) Hip fracture Impression: -satis post op PLAN: cvan go to SNF tomorrow from ortho standpoint. Continue PT- walker ambulate - WBAT on right. Follow up in [facility] in 2 weeks for nikos out and XR. Suggest Lovenox for 10-14 days, then switching to aspirin. Qualifiers: Encounter type: initial encounter Fracture type: closed Laterality: right Qualified Code(s): S72.001A - Fracture of unspecified part of neck of right femur, initial encounter for closed fracture
[2017-06-22] MEDS: DOCUSATE SODIUM 100 MG CAPSULE PO PRN (21:52)
[2017-06-22] MEDS: SENNA 8.6 MG TABLET PO PRN (21:52)
[2017-06-23] MEDS: SODIUM CHLORIDE FLUSH 0.9% 10 ML SYRINGE IVP SCH ×2 (07:01→14:20)
[2017-06-23] MEDS: SODIUM CHLORIDE FLUSH 0.9% 10 ML SYRINGE IVP PRN (07:02)
[2017-06-23] MEDS: PANTOPRAZOLE 40 MG VIAL IVP SCH (07:02)
--- NOTE | 2017-06-23 07:53 | Discharge Plan ---
"Discharge Plan for SNF / [facility] - DC Plan and Transition Orders Disposition: 03 SNF DC/Xfer Condition: Good SNF Transition Orders: Admit to: [facility] under the care of Marleni Gates Discharge Diagnosis: 1. mechanical fall with right femoral shaft fracture and lesser trochanter fracture, POD #3 today. DVT prophylaxis with lovenox will be for 7 more days. Please stop after 7 days and resume ASA 325 mg po qd. 2. chronic stable angina 3. CAD with 3 JARRED stents to LAD 2006 4. HTN 5. Hyperlipidemia 6. Type 2 DM , controlled, without complication or shelter use of insulin Medicare Certification: I certify that [facility] care is medically necessary on a continuing basis for any of the conditions for which she/he is receiving care during hospitalization. Notify PCP of admission and forward orders to primary provider for signature. Weight on admission and weekly. Call PCP immediately if weight increases by 5 pounds or if patient develops dyspnea, chest pain/tightness or edema. House Bowel Program: yes If no BM after 2 days, nurse may give M.O.M. 30ml PO PRN and /or ducolax Supp 1 [facility] and /or BETTY 250mg P.O., and/or senna 1-2 tabs PO. On day 3 nurse may give repeat above order until residents constipation is resolved. Immunizations: Annual Influenza Vaccine: yes. (between Feb 10 and September 09.) Unless allergy or already given Two-Step PPD: yes per [facility] 248-235 or appropriate documentation of approved exceptions Treatments & Other Orders: Oxygen Orders: none Lab Tests or X-Rays Orders: BMP and CBC on 06/30/17 Orthopedic Orders: dry dressing change prn daily see Dr. Bennett or curry in 2 weeks. Db will be removed by Dr. Bennett in 2 week. Medications: PLEASE REFER TO THE DISCHARGE MEDICATION LIST. Insulin Orders? Yes Diagnosis: Diabetes Initiate hypo and hyperglycemia protocols for BG <70 and BG >375. May check BG prn for signs/symptoms of dysglycemia. Frequency of BG checks: [AC in am only. he is well controlled and never needed treatment in the hospital] Basal Insulin: Lantus 100 units / ml inject subq as follows: Other: Correction Insulin: - Select the type of insulin below Humalog 100 units /ml insulin inject subq per orders indicate below [X] LOW DOSE [] MODERATE DOSE [] MODERATE/HIGH DOSE [] HIGH DOSE GB UNITS GB UNITS GB UNITS GB UNITS 61-140 0 UNITS 61-140 0 UNITS 61-140 0 UNITS 61-140 0 UNITS 141-175 1 UNITS 141-175 1 UNITS 141-175 2 UNITS 141-175 3 UNITS 176-225 2 UNITS 176-225 3 UNITS 176-225 4 UNITS 176-225 5 UNITS 226-275 3 UNITS 226-275 5 UNITS 226-275 6 UNITS 226-275 7 UNITS 276-325 4 UNITS 276-325 7 UNITS 276-325 8 UNITS 276-325 9 UNITS 326-375 5 UNITS 326-375 9 UNITS 326-375 10 UNITS 326-375 11 UNITS >375 CONTACT MD >375 CONTACT MD >375 CONTACT MD >375 CONTACT MD Custom Dosing: [Choose: None/Novolog/Humalog] 100 units/ml Insulin inject subq as follows: GB Units 61-140 [] Units 141-175 [] Units 176-225 [] Units 226-275 [] Units 276-325 []Units 326-375 [] Units >375 Contact MD Allergies and Adverse Reactions: Allergies Allergy/AdvReac Type Severity Reaction Status Date / Time No Known Drug Allergies Allergy Verified 06/21/17 00:12 - Medications New Prescriptions: oxyCODONE/ACET 5/325 [Percocet 5 mg/325 mg] 1 tab PO Q4HR PRN #30 tablet PRN Reason: Pain Calcium Carbonate [Tums (Calcium Carbonate 500mg)] 500 mg PO Q4-6H PRN #30 tablet PRN Reason: Indigestion Enoxaparin [Lovenox] 40 mg SUBQ DAILY #7 syringe Nitroglycerin 0.1 mg/Hr Patch [Nitro-Dur] 1 each TOP DAILY #30 patch Pantoprazole [Protonix] 40 mg PO DAILY PRN #30 tablet PRN Reason: Indigestion - Diet Type: Geriatric Texture: Regular Liquids: Thin May have monthly special meal: Yes - Therapies | Activity Therapy: Evaluation | Treat if indicated: PT, OT Rehabilitation Potential: Maximize functional status, Return to independent living Activity: Wt Bearing as Tolerated Weight Bearing: Full Weight Assistance Devices: Walker Follow Up: You were admitted to the hospital because you fell in the kitchen and broke your right femur, the long bone in your right thigh. You have undergone a successful open reduction and internal fixation on 1/9/18. You are going to [facility] temporarily for rehab to get you back on your feet and back home again. You will get 1 week of leg blood clot prevention with Lovenox. After you finish that, resume the aspirin. Please see Dr. Bennett in 2 weeks so he can redo an x-ray, look at the wound, take out the db. Also see your primary care provider and follow-up in the next 2-3 weeks. She may be able to see you at the care home."
[2017-06-23] MEDS: SIMETHICONE CHEW 80 MG TABLET PO PRN (08:06)
[2017-06-23] MEDS: ENOXAPARIN 40 MG/0.4 ML SYRINGE SUBQ SCH (09:07)
[2017-06-23] MEDS: POLYETHYLENE GLYCOL 3350 17 GM PACKET PO SCH (10:48)
--- NOTE | 2017-06-23 10:55 | DISCHARGE SUMMARY ---
Discharge Summary Admit Date: 06/20/17 Discharge Date: 06/23/17 Discharging Provider: Gerri Cabrera MD [phone] Primary Care Provider: RUBA Browne Code Status: Do Not Attempt Resuscitation Condition at Discharge: Good Discharge Disposition: 03 SNF DC/Xfer Discharge Facility Name: [facility] - DIAGNOSES Discharge Diagnoses with Status of Each Condition: Mechanical fall with right femoral neck fracture and trochanteric fracture chronic angina from CAD chronic diastolic congestive heart failure Type 2 DM, controlled with no complications and no use of intermediate accountant insulin HTN, essential COPD acute blood loss anemia - HPI History of Present Illness: He is an 87-year-old white male who still lives independently in his own home. He bicycles on a regular basis and the only reason he stopped bicycling with because of the bad weather recently. His plan was to return to bicycling when the weather got better. He has chronic stable angina. He describes it as chest pain with exertion that is underneath his left upper chest. He describes it as "my indigestion that does not go away with belching." That is unchanged. He is having some now. He had an VA in October 2006 with subsequent percutaneous intervention, no congestive heart failure residual. He does not have atrial fibrillation. He has chronic stable COPD with daily phlegm production and daily chest congestion. It doesn't limit him. He says he does not take any medications for that nor does he need oxygen. He has had no change in cardiovascular endurance in the last year. His main problem is that of loneliness, and grief since his of over 50 something years in May 2016. He was in his kitchen today, putting on his overalls. He was getting ready to go stack his firewood. Unfortunately, he tripped over his pants and fell on his right side. He had instantaneous pain in his right leg. He was brought to the emergency room via ambulance and he has been diagnosed with a hip fracture. It is a displaced and angulated spiral fracture of the proximal right femoral diaphysis. A displaced fracture of the right lesser trochanter. His chest x- ray shows no acute changes. His vital signs are normal and he is afebrile. Mildly hyponatremic at 132. And his EKG shows sinus rhythm. Diffuse low voltages. R-wave progression delayed until V4. No acute ST-T wave changes. - CONSULTS | PROCEDURES Consultations: Dr. Madhu Bennett, Orthopedics Procedures: 1. Chest Xray, 1 view, no acute cardiopulmonary findings, senescent aorta 2. Hip with pelvis 2-3V right :displaced and angulated spiral fracture of proximal right femoral disphysis. displaced facture right lesser trochanter. 3. Femur 2V, right: intraoperative imaging of femoral fracture ORIF shows alignment - HOSPITAL COURSE Hospital Course: (1) Femoral shaft fracture Conclusion/Plan: Orthopedic consult with Dr. Bennett was done and he is discharged on POD #3. He will be discharged to SNF for continued rehab. Goal is for him to return home with independent living. Physical therapy is working with him: Pt. seen x 25 min. today for functional activity as follows: pt. vital signs taken and found to be normal (124/65, HR 100 and O2 saturtion at 99%); Pt. performs ankle pumps and active assested heel slides in supine prior to transfer; pt. c/o pain w/bending his R knee; pt. transfers supine to sit w/max. a x 2; he is able to scoot out to edge of bed and plae his feet on floor w/min. a x 2 and cues; pt. leans off of his r hip in sitting; he is cued to lean right to equalize wt. bearing of hips; pt. c/o pain w/placing R hip on mattress; PT provides gentle flex./ext. of R knee in sitting ; Pt. cued to stand and stands w/min. a x 2; pt. remains standing as nurse "Ajay" provides pt. w/IV medication for pain; pt. then requires min. a x 2 for stepping forward, cues for sequence of "walker, Right, Left; pt. amb. x 5 ft. and then cued to turn in place for aligning w/sitting in chair; he lowers to sitting w/min. a x 2; pt. positioned w/pillow at his back, b/s table placed next to him. Pt. w/call light in reach; pt's nurse reports pt. is not at risk for standing I'ly and does not need chair alarm; Pt. provided w/TV control. He has no questions or voiced complaints after PT session. (2) Angina of effort Impression: chronic, unchanged. Present on admission the none the next morning. But he does complain of intermittent chest pain, especially at rest if he lays down for too long. He likes to sit up and tries to belch. So I ordered Protonix and TUMS to help. Usually relieved by nothing and he waits it out. EKG shows no change. Troponin was negative. At discharge, I have added nitroglycerin patch 0.1 mg to help him .It can be removed at the discretion of the provider who will see him at [facility] if it doesn't help. (3) Chronic diastolic CHF (congestive heart failure), NYHA class 1 Conclusion/Plan: stable. nonlimiting. continued on his ususal meds. No changes made (4) Type 2 diabetes mellitus, controlled Conclusion/Plan: A1c 6.3% and his glucose in the morning were 155, 175, 140, 180. I would recommend checking ac am fingerstick on an ongoing basis while at [facility]. If he's stable, no checks other than the morning one. He is not needing any insulin coverage so far while at [facility]. Qualifiers: Diabetes mellitus complication status: without complication Diabetes mellitus group home insulin use: without intermediate accountant use Qualified Code(s): E11.9 - Type 2 diabetes mellitus without complications (5) HTN (hypertension) Conclusion/Plan: mildly elevated in ER with pain. resumed usual meds. After surgery he dropped his pressure and needed blood. He has remained at less than 120 systolic for 2 days and was on prn lopressor. At discharge he was resumed on his usual Coreg, Lisinopril, Spironolactone. Please check blood pressure daily and adjust meds as needed. I ordered BMP check for one week. BP at discharge 114/56. Qualifiers: Hypertension type: essential hypertension Qualified Code(s): I10 - Essential (primary) hypertension (6) COPD (chronic obstructive pulmonary disease) with chronic bronchitis Conclusion/Plan: On admission he describes a chronic cough, phlegm and it was present on admission exam and he states is his baseline. No hypoxia. CXR neg for infiltrate. He did not need albuterol and by the day of discharge there was no cough or phlegm present. (7) Acute blood loss as cause of postoperative anemia Impression: hgb on admit was 12.3 and dropped to 8.3 with hypotension transfused 1 unit and 9.8, 8.3 after surgery. CBC ordered for one week after discharge. - ALLERGIES Allergies/Adverse Reactions: Allergies Allergy/AdvReac Type Severity Reaction Status Date / Time No Known Drug Allergies Allergy Verified 06/21/17 00:12 - MEDICATIONS Home Medications: Ambulatory Orders Medication Instructions Recorded Confirmed Atorvastatin Calcium 40 mg PO QPM #0 06/23/17 Calcium Carbonate [Tums (Calcium 500 mg PO Q4-6H PRN #30 tablet 06/23/17 Carbonate 500mg)] Carvedilol [Coreg] 12.5 mg PO BID #0 06/23/17 Enoxaparin [Lovenox] 40 mg SUBQ DAILY #7 syringe 06/23/17 Lisinopril 5 mg PO DAILY #0 06/23/17 Nitroglycerin 0.1 mg/Hr Patch 1 each TOP DAILY #30 patch 06/23/17 [Nitro-Dur] Pantoprazole [Protonix] 40 mg PO DAILY PRN #30 tablet 06/23/17 Spironolactone [Aldactone] 25 mg PO DAILY #0 06/23/17 oxyCODONE/ACET 5/325 [Percocet 5 1 tab PO Q4HR PRN #30 tablet 06/23/17 mg/325 mg] - PHYSICAL EXAM AT DISCHARGE General Appearance: positive: No acute distress, Alert, Anxious Eyes Bilateral: positive: PERRL, EOMI, Other (no eyelashes) ENT: positive: Pharynx nml, Other (retains phlegm at back of throat) Neck: positive: No JVD, Other (Hoarse voice, loud speaker). negative: Stiff neck, Carotid bruit Respiratory: positive: Chest non-tender, No respiratory distress, Rhonchi (were present off and on during stay and none today). negative: Wheezes, Rales Cardiovascular: positive: Regular rate & rhythm, Systolic murmur. negative: Gallop/S4, Friction rub Peripheral Pulses: positive: Other (feet are always cold. pulse not easy to palpate ) Abdomen: positive: Non-tender, No organomegaly, Nml bowel sounds, No distention Skin: positive: Warm, Dry Extremities: positive: Other (hip wound closed and healing) Neurologic/Psychiatric: positive: Oriented x3, CN's nml (2-12) (except deaf and speaks loudly, you need to look at him so he can see and hear you), Motor nml, Other (mobility limited by pain in hip) - LABS Result Diagrams: 06/22/17 08:49 06/20/17 19:50 - TIME SPENT Time Spent in Discharge (Minutes): 40
[2017-06-23 15:47] VITALS: BP 129/59
== END 2017-06-23 16:03 | DRG 481 ==
LOC: EDUNIT# → ED 11:49 → MS2 15:40
PROVIDERS: ADMIT Specialist; ATTEND Specialist
PROC: 0QS604Z Reposition Right Upper Femur with Internal Fixation Device, Open Approach (ICD-10-PCS; 2017-06-20)
PROC: 0QS806Z Reposition Right Femoral Shaft with Intramedullary Internal Fixation Device, Open Approach (ICD-10-PCS; principal; 2017-06-20 16:00)
PROC: 30233N1 Transfusion of Nonautologous Red Blood Cells into Peripheral Vein, Percutaneous Approach (ICD-10-PCS; 2017-06-21)
DX: S72.341A Displaced spiral fracture of shaft of right femur, initial encounter for closed fracture (principal); I50.32 Chronic diastolic (congestive) heart failure; D62 Acute posthemorrhagic anemia; S72.21XA Displaced subtrochanteric fracture of right femur, initial encounter for closed fracture; W01.0XXA Fall on same level from slipping, tripping and stumbling without subsequent striking against object, initial encounter; E78.00 Pure hypercholesterolemia, unspecified; Y92.000 Kitchen of unspecified non-institutional (private) residence as the place of occurrence of the external cause; I25.118 Atherosclerotic heart disease of native coronary artery with other forms of angina pectoris; J44.9 Chronic obstructive pulmonary disease, unspecified; I11.0 Hypertensive heart disease with heart failure; E11.9 Type 2 diabetes mellitus without complications; H91.90 Unspecified hearing loss, unspecified ear; R35.0 Frequency of micturition; R39.15 Urgency of urination; Z79.82 Long term (current) use of aspirin; Z79.899 Other long term (current) drug therapy; I25.2 Old myocardial infarction; Z87.891 Personal history of nicotine dependence
CPT/HCPCS: 36415; 71045; 80051; 80053; 83036; 83690; 85014; 85018; 85025; 86850; 86900; 86901; 86920; 93005; 96374; 96376; 99284

== ENCOUNTER 2017-06-28 07:26 | Outpatient (CLI) | payer MEDICARE, OTHER | END 2017-06-28 07:27 | disposition short-term general hospital (02) | LOC: EMS 07:26 | PROVIDERS: ATTEND Surgery | DX: R55 Syncope and collapse (principal); R46.4 Slowness and poor responsiveness; R29.810 Facial weakness; R47.81 Slurred speech | CPT/HCPCS: A0425; A0427 ==

== ENCOUNTER 2017-07-07 15:56 | Outpatient (CLI) | payer MEDICARE, OTHER | END 2017-07-07 15:57 | disposition short-term general hospital (02) | LOC: EMS 15:56 | PROVIDERS: ATTEND Surgery | DX: R55 Syncope and collapse (principal); R42 Dizziness and giddiness; R09.89 Other specified symptoms and signs involving the circulatory and respiratory systems | CPT/HCPCS: A0425; A0427 ==